=== PATIENT | male | born 1995 | race Caucasian/White ===

== ENCOUNTER 2024-11-11 04:59 | Inpatient (IN) | payer OTHER ==
[~2024-11-11] VITALS: Ht 172.7 cm; Wt 108.3 kg
[2024-11-11 06:29] LABS: BASOPHILS # (AUTO) 0.1 X10'3 (0-0.2); BASOPHILS % (AUTO) 0.4 % (0-1); EOSINOPHILS % (AUTO) 0.2 % (0-6); HEMATOCRIT 45.7 % (42.0-52.0); HEMOGLOBIN 16.2 g/dl (14.0-17.9); LYMPHOCYTES # (AUTO) 0.6 X10'3 (1.1-4.8); LYMPHOCYTES % (AUTO) 4.1 % (21-51); MEAN CORPUSCULAR HEMOGLOBIN 32.6 PG (27.0-31.0); MEAN CORPUSCULAR HGB CONC 35.5 g/dL (33.0-36.5); MEAN CORPUSCULAR VOLUME 91.8 FL (78-98); MEAN PLATELET VOLUME 8.1 FL (7.4-10.4); MONOCYTES # (AUTO) 0.6 X10'3 (0-0.9); MONOCYTES % (AUTO) 3.9 % (2-12); NEUTROPHILS # (AUTO) 13.3 X10'3 (1.8-7.7); NEUTROPHILS % (AUTO) 91.4 % (42-75); PLATELET COUNT 188 X10'3 (140-440); RED BLOOD COUNT 4.98 X10'6 (4.70-6.10); RED CELL DISTRIBUTION WIDTH 12.7 % (11.5-14.5); WHITE BLOOD COUNT 14.5 X10'3 (4.5-11.0)
[2024-11-11 06:45] LABS: ALANINE AMINOTRANSFERASE 59 U/L (12-78); ALBUMIN 4.5 G/DL (3.4-5.0); ALBUMIN/GLOBULIN RATIO 1.2 (1.1-1.5); ALKALINE PHOSPHATASE 96 IU/L (46-116); ANION GAP 8 (8-16); ASPARTATE AMINO TRANSFERASE 38 U/L (10-37); BILIRUBIN,TOTAL 1.3 MG/DL (0.1-1.0); BLOOD UREA NITROGEN 12 MG/DL (7-18); BUN/CREATININE RATIO 11.1 (10.0-20.0); CALCIUM 9.3 MG/DL (8.5-10.1); CHLORIDE 104 MMOL/L (99-107); CREATININE 1.08 MG/DL (0.60-1.10); GLUCOSE 142 MG/DL (70-104); LIPASE 25 U/L (16-77); POTASSIUM 3.4 MMOL/L (3.5-5.1); SODIUM 140 MMOL/L (135-145); TOTAL CARBON DIOXIDE 27.9 MMOL/L (24-32); TOTAL PROTEIN 8.2 G/DL (6.4-8.2); eCRCL 96 ML/MIN; eGFR 80 ML/MIN
[2024-11-11] MEDS: ondansetron/PF 4mg/2ml inj IV ONE (08:07)
[2024-11-11] MEDS: morphine 4 MG/ML inj SYRINge IV ONE (08:07)
[2024-11-11] MEDS: normal saline 1000ml 1,000 ML IV ONE (08:19)
[2024-11-11 08:50] LABS: BILIRUBIN,URINE NEGATIVE (Neg); CLARITY,URINE CLEAR (Clear); COLOR,URINE YELLOW (Yellow); GLUCOSE, URINE 100 mg/dl (Neg); KETONES,URINE NEGATIVE (Neg); LEUKOCYTE ESTERASE ,URINE NEGATIVE (Neg); NITRITES, URINE NEGATIVE (Neg); OCCULT BLOOD,URINE NEGATIVE (Neg); PH,URINE 8.5 (4.8-8.0); PROTEIN,URINE TRACE mg/dl (Neg); UROBILINOGEN,URINE 0.2 E.U/dL (0.2-1.0)
[2024-11-11] MEDS ORDERED: piperacillin/tazo 3.375gm/50ml 50 ML IV SCH (09:00)
[2024-11-11 09:02] LABS: UA COLLECTION TYPE NON-SPECIFIED
[2024-11-11 09:04] LABS: BACTERIA,URINE NONE SEEN /HPF (Neg); MUCUS STRANDS NONE SEEN /LPF (Neg); RBC,URINE NONE SEEN /HPF (0-2); SQUAMOUS EPITHELIAL CELL,UR FEW /LPF (FEW); WBC,URINE NONE SEEN /HPF (0-4)
[2024-11-11] MEDS ORDERED: magnesium sulf-water 4G/100mL 100 ML IV PRN (09:30)
[2024-11-11] MEDS: normal saline 1000ml 1,000 ML IV SCH ×2 (09:30→09:36)
[2024-11-11] MEDS ORDERED: HYDROcodone/acetaminophen 5mg/325mg tablet PO PRN (09:30)
[2024-11-11] MEDS ORDERED: acetaminophen 325mg tablet PO PRN ×2 (09:30)
[2024-11-11] MEDS ORDERED: potassium Cl 40MEQ/1/2NS 520ml 520 ML IV PRN (09:30)
[2024-11-11] MEDS ORDERED: magnesium Cl slow-release 64mg tablet PO PRN (09:30)
[2024-11-11] MEDS ORDERED: potassium Cl 20 mEq SR tablet PO PRN ×2 (09:30)
[2024-11-11] MEDS ORDERED: morphine 2 MG/ML inj. syringe IV PRN (09:30)
[2024-11-11] MEDS ORDERED: magnesium sulf-water 2g/50mL 50 ML IV PRN (09:30)
[2024-11-11] MEDS ORDERED: ondansetron/PF 4mg/2ml inj IV PRN (09:30)
[2024-11-11] MEDS: CefTRIAXone/D5W-Rocephin 1gm 50 ML IV ONE (09:36)
[2024-11-11] MEDS: metroNIDAZOLE-Flagyl 500mg/NS 100 ML IV STA (09:36)
[2024-11-11 10:09] LABS: APTT 25 SECONDS (22-32); INR 1.1 INR; PROTHROMBIN TIME 11.1 SECONDS (9.0-12.0)
[2024-11-11] MEDS ORDERED: NO HOME MEDS (10:57)
[2024-11-11] MEDS: morphine 2 MG/ML inj. syringe IV PRN (11:41)
[2024-11-11] MEDS ORDERED: haloperidol lactate 5mg/ml inj IM PRN (11:50)
[2024-11-11] MEDS ORDERED: LORazepam 2 mg/ml vial IV PRN (11:50)
[2024-11-11] MEDS ORDERED: haloperidol 5mg tablet PO PRN (11:50)
[2024-11-11] MEDS ORDERED: LORazepam 1 MG tablet PO PRN (11:50)
[2024-11-11] MEDS ORDERED: ipratropium/albuterol 3ml nebule NEB PRN (16:10)
[2024-11-11] MEDS: albuterol 2.5 MG/3 ML nebule NEB ONE (18:05)
[2024-11-11] MEDS: ringers solution, lacted 1,000 ML IV ONE (18:29)
[2024-11-11] MEDS: HYDROcodone/acetaminophen 10/325mg tab PO PRN (18:48)
[2024-11-11] MEDS ORDERED: heparin, porcine 5000 units/ml vial SQ SCH (20:00)
[2024-11-12] VITALS (18 sets, daily range): BP systolic 118–141; BP diastolic 66–88; PULSE 67–96; RESP 13–16; TEMP 97.6–98.6; O2SAT 92–100
[2024-11-12] MEDS: metroNIDAZOLE-Flagyl 500mg/NS 100 ML IV SCH (00:34)
[2024-11-12 03:09] LABS: BASOPHILS % (AUTO) 0.2 % (0-1); EOSINOPHILS % (AUTO) 0.3 % (0-6); HEMATOCRIT 40.6 % (42.0-52.0); HEMOGLOBIN 14.1 g/dl (14.0-17.9); LYMPHOCYTES % (AUTO) 10.4 % (21-51); MEAN CORPUSCULAR HEMOGLOBIN 32.5 PG (27.0-31.0); MEAN CORPUSCULAR HGB CONC 34.8 g/dL (33.0-36.5); MEAN CORPUSCULAR VOLUME 93.4 FL (78-98); MEAN PLATELET VOLUME 7.7 FL (7.4-10.4); MONOCYTES # (AUTO) 0.6 X10'3 (0-0.9); MONOCYTES % (AUTO) 5.8 % (2-12); NEUTROPHILS # (AUTO) 8.1 X10'3 (1.8-7.7); NEUTROPHILS % (AUTO) 83.3 % (42-75); PLATELET COUNT 163 X10'3 (140-440); RED BLOOD COUNT 4.35 X10'6 (4.70-6.10); RED CELL DISTRIBUTION WIDTH 12.2 % (11.5-14.5); WHITE BLOOD COUNT 9.7 X10'3 (4.5-11.0)
[2024-11-12 03:38] LABS: ALANINE AMINOTRANSFERASE 41 U/L (12-78); ALBUMIN 3.3 G/DL (3.4-5.0); ALBUMIN/GLOBULIN RATIO 0.9 (1.1-1.5); ALKALINE PHOSPHATASE 75 IU/L (46-116); ANION GAP 10 (8-16); ASPARTATE AMINO TRANSFERASE 18 U/L (10-37); BILIRUBIN,TOTAL 1.5 MG/DL (0.1-1.0); BLOOD UREA NITROGEN 8 MG/DL (7-18); BUN/CREATININE RATIO 8.2 (10.0-20.0); CALCIUM 8.6 MG/DL (8.5-10.1); CHLORIDE 104 MMOL/L (99-107); CREATININE 0.98 MG/DL (0.60-1.10); GLUCOSE 109 MG/DL (70-104); POTASSIUM 3.7 MMOL/L (3.5-5.1); SODIUM 140 MMOL/L (135-145); TOTAL CARBON DIOXIDE 25.9 MMOL/L (24-32); TOTAL PROTEIN 6.8 G/DL (6.4-8.2); eCRCL 106 ML/MIN; eGFR 89 ML/MIN
[2024-11-12] MEDS ORDERED: BUPIVAcaine 2.5mg/ml inj 50ml vial (contains preservative) ONE (05:38)
[2024-11-12] MEDS: famotidine/PF 10 mg/ml inj IV ONE (06:27)
[2024-11-12] MEDS ORDERED: ondansetron/PF 4mg/2ml inj IV PRN (06:40)
[2024-11-12] MEDS ORDERED: morphine 2 MG/ML inj. syringe IV PRN (06:40)
[2024-11-12] MEDS ORDERED: hydrALAZINE 20mg/ml inj. IV PRN (06:40)
[2024-11-12] MEDS ORDERED: morphine 4 MG/ML inj SYRINge IV PRN (06:40)
[2024-11-12] MEDS ORDERED: fentaNYL/PF 50MCG/1 ML 2ML syringe IV PRN ×2 (06:40)
[2024-11-12] MEDS ORDERED: labetalol 20mg/4ml (5mg/ml) syringe IV PRN (06:40)
[2024-11-12] MEDS: ringers solution, lacted 1,000 ML IV SCH (06:40)
[2024-11-12] MEDS ORDERED: rocuronium 10mg/ml inj IV ONE ×2 (06:50→07:52)
[2024-11-12] MEDS ORDERED: dexamethasone sod phosphate 4mg/ml inj. ONE (06:50)
[2024-11-12] MEDS ORDERED: propofol inj 20 ML IV ONE (06:50)
[2024-11-12] MEDS ORDERED: LIDOcaine 2% (20mg/ml) 5ml vial ONE (06:50)
[2024-11-12] MEDS ORDERED: ondansetron/PF 4mg/2ml inj ONE (06:50)
[2024-11-12] MEDS ORDERED: acetaminophen 1,000mg/100ml IV 100 ML IV ONE (06:51)
[2024-11-12] MEDS ORDERED: acetaminophen 1,000mg/100ml IV 0 ML IV ONE (06:51)
[2024-11-12] MEDS ORDERED: sevoflurane 250ml liquid IH ONE (07:05)
[2024-11-12] MEDS ORDERED: midazolam 1 mg/ML 2ml injection ONE (07:07)
[2024-11-12] MEDS ORDERED: fentaNYL /PF 50mcg/ml 5ml ampule ONE (07:10)
[2024-11-12] MEDS: BUPIVAcaine 2.5mg/ml inj 50ml vial (contains preservative) SQ ONE (07:54)
[2024-11-12] MEDS ORDERED: sugammadex 200mg/2ml injection IV ONE (07:59)
[2024-11-12] MEDS: CefTRIAXone 2gm/D5W 50ml BAG 50 ML IV SCH (08:00)
[2024-11-12] MEDS ORDERED: hydrALAZINE 20mg/ml inj. ONE (08:03)
[2024-11-12] MEDS ORDERED: labetalol 20mg/4ml (5mg/ml) syringe IV ONE (08:23)
[2024-11-12] MEDS ORDERED: ketorolac trometh 30MG/ML vial 30 MG/ML VIAL IV PRN (08:45)
[2024-11-12] MEDS ORDERED: naloxone 0.4 mg/ml inj IV PRN (08:45)
[2024-11-12] MEDS: HYDROcodone/acetaminophen 10/325mg tab PO PRN (09:58)
[2024-11-13 01:49] VITALS: BP 109/63; PULSE 91; RESP 16; TEMP 97.9; O2SAT 98
[2024-11-13 06:00] VITALS: BP 124/78; PULSE 97; RESP 18; TEMP 98; O2SAT 98
[2024-11-13 06:02] LABS: BASOPHILS % (AUTO) 0.1 % (0-1); EOSINOPHILS % (AUTO) 0.1 % (0-6); HEMATOCRIT 38.6 % (42.0-52.0); HEMOGLOBIN 13.5 g/dl (14.0-17.9); LYMPHOCYTES # (AUTO) 1.3 X10'3 (1.1-4.8); LYMPHOCYTES % (AUTO) 15.2 % (21-51); MEAN CORPUSCULAR HEMOGLOBIN 32.8 PG (27.0-31.0); MEAN CORPUSCULAR HGB CONC 34.9 g/dL (33.0-36.5); MEAN CORPUSCULAR VOLUME 93.9 FL (78-98); MEAN PLATELET VOLUME 8.4 FL (7.4-10.4); MONOCYTES # (AUTO) 0.5 X10'3 (0-0.9); NEUTROPHILS # (AUTO) 6.5 X10'3 (1.8-7.7); NEUTROPHILS % (AUTO) 78.6 % (42-75); PLATELET COUNT 181 X10'3 (140-440); RED BLOOD COUNT 4.11 X10'6 (4.70-6.10); RED CELL DISTRIBUTION WIDTH 12.3 % (11.5-14.5); WHITE BLOOD COUNT 8.3 X10'3 (4.5-11.0)
[2024-11-13 06:19] LABS: ALANINE AMINOTRANSFERASE 30 U/L (12-78); ALBUMIN 3.1 G/DL (3.4-5.0); ALBUMIN/GLOBULIN RATIO 0.8 (1.1-1.5); ALKALINE PHOSPHATASE 68 IU/L (46-116); ANION GAP 6 (8-16); ASPARTATE AMINO TRANSFERASE 18 U/L (10-37); BILIRUBIN,TOTAL 0.7 MG/DL (0.1-1.0); BLOOD UREA NITROGEN 8 MG/DL (7-18); BUN/CREATININE RATIO 8.2 (10.0-20.0); CALCIUM 8.7 MG/DL (8.5-10.1); CHLORIDE 108 MMOL/L (99-107); CREATININE 0.98 MG/DL (0.60-1.10); GLUCOSE 93 MG/DL (70-104); POTASSIUM 3.6 MMOL/L (3.5-5.1); SODIUM 141 MMOL/L (135-145); TOTAL CARBON DIOXIDE 26.6 MMOL/L (24-32); eCRCL 106 ML/MIN; eGFR 89 ML/MIN
[2024-11-13 08:07] VITALS: RESP 16; O2SAT 98
[2024-11-13] MEDS ORDERED: HYDR-3972 PO ×2 (08:53→11:11)
[2024-11-13 11:31] VITALS: PULSE 82; RESP 16; O2SAT 98
[2024-11-15] MEDS ORDERED: thiamine 100mg tablet PO SCH (08:00)
[2024-11-16] MEDS ORDERED: folic acid 1mg tablet PO SCH (08:00)
== END 2024-11-13 09:30 | disposition home or self-care (01) | DRG 399 ==
LOC: ER 04:59 → ED HOLD 09:31 → UNDOADMIN 09:31 → ED HOLD 11:52 → ORTHO 4S 11-12 09:40 → ED HOLD 11-12 09:40
PROVIDERS: ADMIT Internal Medicine; ATTEND Internal Medicine
PROC: 8E0W4CZ Robotic Assisted Procedure of Trunk Region, Percutaneous Endoscopic Approach (ICD-10-PCS; 2024-11-12)
PROC: 0DTJ4ZZ Resection of Appendix, Percutaneous Endoscopic Approach (ICD-10-PCS; principal; 2024-11-12 07:05)
DX: K35.80 Unspecified acute appendicitis (principal); J45.909 Unspecified asthma, uncomplicated; E87.6 Hypokalemia; R74.01 Elevation of levels of liver transaminase levels; E80.6 Other disorders of bilirubin metabolism; F10.10 Alcohol abuse, uncomplicated; D72.829 Elevated white blood cell count, unspecified; Z88.0 Allergy status to penicillin; Z79.899 Other long term (current) drug therapy
CPT/HCPCS: 99285; Z7506; Z7508; 36415; 74176; 76700; 80053; 81001; 83605; 83690; 85025; 85610; 85730; 87040; 87081; 93005; 94760; 97116; 97161; A4215; A4314; A4618; A6212; A6253; A6402; A6446; G0378; J0131; J0360; J0696; J1100; J2003; J2250; J2270; J2405; J2704; J3010; J3490; J7030; J7120